=== PATIENT | male | born 1940 | race Caucasian/White ===

== ENCOUNTER → 2021-04-03 08:16 | Outpatient (CLI) | payer MEDICARE, SELFPAY ==
[2021-03-24 14:52] VITALS: BMI 27.2
[2021-04-03 12:20] LABS: Absolute Lymphocyte Count 2.63 X10^3/uL (0.83-4.51); Absolute Neutrophil Count 1.9 X10^3/uL (2.0-7.7); Basophil# 0.02 X10^3/uL; Basophil% 0.4 % (0-1); Eosinophil# 0.07 X10^3/uL; Eosinophils% 1.4 % (0-5); Hematocrit 45.1 % (40-54); Hemoglobin 14.9 g/dL (13.0-16.5); Lymphocyte # 2.63 X10^3/ul (0.83-4.51); Lymphocyte % 51.9 % (19-41); Mean Corpuscular Hgb 31.6 pg (27.0-32.0); Mean Corpuscular Volume 95.8 fL (80-94); Mean Platelet Vol. 10.1 fl (6.2-12.0); Monocyte# 0.41 X10^3/uL; Monocyte% 8.1 % (0-10); NRBC Flagged by Analyzer 0 % (0-5); Neutrophil # 1.93 X10^3/uL (2.7-7.7); Platelet Count 164 K/mm3 (150-450); RBC Distribution Width CV 13.8 % (11.6-14.6); Red Blood Count 4.71 M/mm3 (4.6-6.2); White Blood Count 5.1 K/mm3 (4.4-11.0)
[2021-04-03 12:41] LABS: Vitamin D,25 Hydroxy 74.2 ng/mL
[2021-04-03 13:00] LABS: AST(SGOT) 21 U/L (15-37); Alanine Aminotransfer ALT/SGPT 26 U/L (16-61); Albumin, Serum 3.7 g/dL (3.2-5.0); Alkaline Phosphatase 68 U/L (45-117); Anion Gap 6 (5-15); BUN 18 mg/dL (7-18); BUN/Creat Ratio 16.8 RATIO (10-20); Calcium,Total 8.8 mg/dL (8.5-10.1); Chloride 104 mmol/L (98-107); Cholesterol 177 mg/dL (200); Creatinine, Serum 1.07 mg/dL (0.70-1.30); EST Glomerular Filtration Rate 71 mL/min (>60); Est Glom Filt Rate - Afr Amer 86 mL/min (>60); Globulin 3.7 g/dL (2.2-4.2); Glucose 81 mg/dL (74-106); High Density Lipoprotein 41 mg/dL; PSA,Total - Annual Screen 3.59 ng/mL (0.00-4.00); Protein, Total 7.4 g/dL (6.4-8.2); Sodium Level 139 mmol/L (136-145); Triglycerides 72 mg/dL; Very Low Density Lipoprotein 14 mg/dL (5-40)
== END ==
PROVIDERS: PCP Internal Medicine; Visit Provider Internal Medicine
DX: I25.10 Atherosclerotic heart disease of native coronary artery without angina pectoris (principal); Z12.5 Encounter for screening for malignant neoplasm of prostate; E55.9 Vitamin D deficiency, unspecified; Z95.820 Peripheral vascular angioplasty status with implants and grafts
CPT/HCPCS: 36415; 80053; 80061; 82306; 84153; 85025; G0103

== ENCOUNTER → 2021-05-21 06:49 | Outpatient (CLI) | payer MEDICARE, SELFPAY ==
[2021-05-06 08:52] VITALS: BMI 27.4
[2021-05-18 09:32] VITALS: BMI 27.4
--- NOTE | 2021-05-21 06:52 | ECHOD_ITS ---
Reason For Study: CAD/ASHD Procedure This was a 2D Doppler, Color Flow transthoracic echocardiogram. Exam performed in department. Left Ventricle Normal LV size. Left ventricular systolic function is normal. The estimated ejection fraction is 60 %. Stage 1 diastolic dysfunction. No regional wall motion abnormalities noted. Right Ventricle Normal RV size. Normal systolic function. Atria Normal left atrium. Normal right atrium. Mitral Valve Normal mitral valve. Tricuspid Valve Normal tricuspid valve. Aortic Valve Trisinus/trileaflet aortic valve. Moderate focal aortic valve calcification. Pulmonic Valve Normal pulmonic valve. Trivial pulmonic valve insufficiency. Great Vessels Normal aortic root. The pulmonary artery is normal size. Normal inferior vena cava. Pericardium/Pleural No pericardial effusion. MMode/2D Measurements & Calculations LVIDd: 4.9 cm IVSd: 0.86 cm Ao root diam: 3.4 cm LVIDs: 3.0 cm LVPWd: 0.88 cm RVDd: 3.8 cm FS: 37.6 % LAV(MOD-bp): 51.4 ml LA A4 area: 19.3 cm2 LA dimension(2D): 3.4 cm LAV(MOD-bp) Indexed: 27.5 ml/m2 LAV(MOD-sp2): 50.4 ml LAV(MOD-sp4): 50.4 ml RA A4 area: 19.0 cm2 Doppler Measurements & Calculations MV E max jesús: 38.2 cm/sec Lat Peak E' Jesús: 7.0 cm/sec Med Peak E' Jesús: 7.9 cm/sec MV A max jesús: 43.9 cm/sec E/E' lat: 5.5 E/E' med: 4.9 MV E/A: 0.87 Ao V2 max: 116.0 cm/sec LV V1 max: 77.5 cm/sec PA V2 max: 78.8 cm/sec Ao max P.4 mmHg LV V1 max P.4 mmHg ECHO/Echo Complete Interpretation Summary Normal LV size. Left ventricular systolic function is normal. The estimated ejection fraction is 60 %. Moderate focal aortic valve calcification. Stage 1 diastolic dysfunction. Ordering Physician: Wayne Okeefe Referring Physician: Ondina Dumont Performed By: Ann Ramirez, SKYLAR, RVT
--- NOTE | 2021-05-21 18:37 | STRESSREP_ITS ---
Stress Test Report Exercise myocardial perfusion stress test. 80-year-old man with a history of coronary artery disease. Stress protocol: Resting EKG demonstrates sinus bradycardia with a rate of 50 bpm normal intervals are noted resting blood pressure is 132/80 mmHg. The patient exercised according to regular Tesfaye protocol for total duration of 6 minutes. The maximum heart rate attained was 130 bpm which was 91% of max impact her heart rate the maximum workload was 7 metabolic equivalents. At rest there were no ST or T wave changes noted to suggest ischemia. At peak exercise there was less than [address] depression noted in the inferolateral leads. The above did not meet the criteria for ischemia. No clinical angina was noted the test was terminated due to shortness of breath. The peak blood pressure was 142/84 mmHg. Myocardial perfusion protocol. 11.3 mCi of technetium 99m sestamibi was injected at rest. The patient exercise d according to regular Tesfaye protocol for total duration of 6 minutes. At peak exercise 33.5 mCi of technetium 99m sestamibi was injected stress images were obtained stress and rest images were reconstructed and compared in the short axis vertical long and horizontal long axis. Gated images were also obtained to Perfusion SPECT analysis: Review of the stress images demonstrate normal uptake of tracer noted in all areas of the myocardium. The resting images similarly demonstrate normal uptake of tracer noted in all areas of the myocardium. No areas of reversibility are noted suggest ischemia and no previous infarct is noted. Gated SPECT analysis: The gated ejection fraction is 67%. Conclusion: Normal exercise myocardial perfusion stress test at a moderate workload. Preserved ejection fraction.
== END ==
PROVIDERS: PCP Internal Medicine; Referring Provider Internal Medicine Cardiovascular Disease; Visit Provider Internal Medicine Cardiovascular Disease
DX: I25.10 Atherosclerotic heart disease of native coronary artery without angina pectoris (principal); Z95.5 Presence of coronary angioplasty implant and graft
CPT/HCPCS: 78452; 93017; 93306; A9500; A4216

== ENCOUNTER → 2022-04-21 | Outpatient (CLI) | payer MEDICARE, SELFPAY ==
[2022-04-21 12:07] LABS: Absolute Lymphocyte Count 1.88 X10^3/uL (0.83-4.51); Basophil# 0.03 X10^3/uL; Basophil% 0.7 % (0-1); Eosinophil# 0.08 X10^3/uL; Eosinophils% 1.8 % (0-5); Hematocrit 45.1 % (40-54); Hemoglobin 15.3 g/dL (13.0-16.5); Lymphocyte # 1.88 X10^3/ul (0.83-4.51); Lymphocyte % 42.9 % (19-41); Mean Corp Hgb Conc 33.9 g/dL (32-36); Mean Corpuscular Hgb 31.9 pg (27.0-32.0); Mean Corpuscular Volume 94.2 fL (80-94); Mean Platelet Vol. 10.1 fl (6.2-12.0); Monocyte% 9.1 % (0-10); NRBC Flagged by Analyzer 0 % (0-5); Neutrophil # 1.98 X10^3/uL (2.7-7.7); Neutrophil % 45.3 % (47-70); Platelet Count 177 K/mm3 (150-450); RBC Distribution Width CV 14.2 % (11.6-14.6); RBC Distribution Width SD 49.1 fl (35.1-43.9); Red Blood Count 4.79 M/mm3 (4.6-6.2); White Blood Count 4.4 K/mm3 (4.4-11.0)
[2022-04-21 12:40] LABS: ALB/GLOB Ratio 0.9 RATIO (0.9-2.4); AST(SGOT) 21 U/L (15-37); Alanine Aminotransfer ALT/SGPT 25 U/L (16-61); Albumin, Serum 3.5 g/dL (3.2-5.0); Alkaline Phosphatase 66 U/L (45-117); Anion Gap 4 (5-15); BUN 14 mg/dL (7-18); BUN/Creat Ratio 12.6 RATIO (10-20); Calcium,Total 8.9 mg/dL (8.5-10.1); Chloride 106 mmol/L (98-107); Cholesterol 186 mg/dL (200); Creatinine, Serum 1.11 mg/dL (0.70-1.30); EST Glomerular Filtration Rate 68 mL/min (>60); Est Glom Filt Rate - Afr Amer 82 mL/min (>60); Globulin 3.8 g/dL (2.2-4.2); Glucose 94 mg/dL (74-106); High Density Lipoprotein 35 mg/dL; PSA,Total - Annual Screen 3.48 ng/mL (0.00-4.00); Potassium 4.1 mmol/L (3.5-5.1); Protein, Total 7.3 g/dL (6.4-8.2); Sodium Level 137 mmol/L (136-145); Triglycerides 124 mg/dL; Very Low Density Lipoprotein 25 mg/dL (5-40)
== END | disposition home or self-care (01) ==
LOC: BIMLAB 09:00
PROVIDERS: PCP Internal Medicine; Visit Provider Internal Medicine
DX: R39.9 Unspecified symptoms and signs involving the genitourinary system (principal); I25.10 Atherosclerotic heart disease of native coronary artery without angina pectoris; Z95.5 Presence of coronary angioplasty implant and graft; Z12.5 Encounter for screening for malignant neoplasm of prostate
CPT/HCPCS: 36415; 80053; 80061; 84153; 85025; G0103

== ENCOUNTER 2022-09-22 10:25 | Outpatient (CLI) | payer MEDICARE, SELFPAY ==
[2022-09-22 13:04] LABS: Vitamin D,25 Hydroxy 67.1 ng/mL
[2022-09-22 13:07] LABS: Cholesterol 210 mg/dL (200); High Density Lipoprotein 41 mg/dL; Triglycerides 86 mg/dL; Very Low Density Lipoprotein 17 mg/dL (5-40)
[2022-09-22 13:33] LABS: Hemoglobin A1c 5.1 % (3.8-5.6)
== END 2022-09-22 23:59 | disposition home or self-care (01) ==
LOC: BIMLAB 10:26
PROVIDERS: PCP Internal Medicine; Referring Provider Internal Medicine; Visit Provider Internal Medicine
DX: R73.9 Hyperglycemia, unspecified (principal); I25.10 Atherosclerotic heart disease of native coronary artery without angina pectoris; Z95.5 Presence of coronary angioplasty implant and graft; E55.9 Vitamin D deficiency, unspecified
CPT/HCPCS: 36415; 80061; 82306; 83036

== ENCOUNTER → 2023-07-05 | Outpatient (CLI) | payer MEDICARE, SELFPAY ==
[2023-07-05 16:57] LABS: Absolute Lymphocyte Count 2.25 X10^3/uL (0.83-4.51); Absolute Neutrophil Count 2.2 X10^3/uL (2.0-7.7); Basophil# 0.04 X10^3/uL; Basophil% 0.8 % (0-1); Eosinophil# 0.07 X10^3/uL; Eosinophils% 1.4 % (0-5); Hematocrit 44.2 % (40-54); Hemoglobin 14.6 g/dL (13.0-16.5); Lymphocyte # 2.25 X10^3/ul (0.83-4.51); Lymphocyte % 44.6 % (19-41); Mean Corpuscular Hgb 32.1 pg (27.0-32.0); Mean Corpuscular Volume 97.1 fL (80-94); Mean Platelet Vol. 9.6 fl (6.2-12.0); Monocyte# 0.47 X10^3/uL; Monocyte% 9.3 % (0-10); NRBC Flagged by Analyzer 0 % (0-5); Neutrophil # 2.21 X10^3/uL (2.7-7.7); Neutrophil % 43.7 % (47-70); Platelet Count 178 K/mm3 (150-450); RBC Distribution Width CV 14.7 % (11.6-14.6); RBC Distribution Width SD 52.4 fl (35.1-43.9); Red Blood Count 4.55 M/mm3 (4.6-6.2); White Blood Count 5.1 K/mm3 (4.4-11.0)
[2023-07-05 17:30] LABS: ALB/GLOB Ratio 0.8 RATIO (0.9-2.4); AST(SGOT) 24 U/L (15-37); Alanine Aminotransfer ALT/SGPT 43 U/L (16-61); Albumin, Serum 3.4 g/dL (3.2-5.0); Alkaline Phosphatase 80 U/L (45-117); Anion Gap 2 (5-15); BUN 19 mg/dL (7-18); Calcium,Total 8.7 mg/dL (8.5-10.1); Chloride 107 mmol/L (98-107); Cholesterol 205 mg/dL (200); Creatinine, Serum 1.12 mg/dL (0.70-1.30); EST Glomerular Filtration Rate 67 mL/min (>60); Est Glom Filt Rate - Afr Amer 81 mL/min (>60); Glucose 82 mg/dL (74-106); High Density Lipoprotein 41 mg/dL; PSA,Total - Annual Screen 3.17 ng/mL (0.00-4.00); Potassium 4.5 mmol/L (3.5-5.1); Protein, Total 7.4 g/dL (6.4-8.2); Sodium Level 140 mmol/L (136-145); Triglycerides 143 mg/dL; Very Low Density Lipoprotein 29 mg/dL (5-40)
[2023-07-05 19:11] LABS: Vitamin B12 738 pg/mL (211-911); Vitamin D,25 Hydroxy 50.6 ng/mL
== END | disposition home or self-care (01) ==
LOC: BIMLAB 15:17
PROVIDERS: PCP Internal Medicine; Visit Provider Internal Medicine
DX: I25.10 Atherosclerotic heart disease of native coronary artery without angina pectoris (principal); Z95.5 Presence of coronary angioplasty implant and graft; R39.9 Unspecified symptoms and signs involving the genitourinary system; E55.9 Vitamin D deficiency, unspecified; Z13.220 Encounter for screening for lipoid disorders; Z12.5 Encounter for screening for malignant neoplasm of prostate; E53.8 Deficiency of other specified B group vitamins
CPT/HCPCS: 36415; 80053; 80061; 82306; 82607; 84153; 84443; 85025; G0103

== ENCOUNTER → 2024-01-16 | Outpatient (CLI) | payer MEDICARE, SELFPAY ==
[2024-01-16 12:05] LABS: Absolute Lymphocyte Count 2.26 X10^3/uL (0.83-4.51); Absolute Neutrophil Count 2.5 X10^3/uL (2.0-7.7); Basophil# 0.03 X10^3/uL; Basophil% 0.6 % (0-1); Eosinophil# 0.12 X10^3/uL; Eosinophils% 2.3 % (0-5); Hemoglobin 15.1 g/dL (13.0-16.5); Lymphocyte # 2.26 X10^3/ul (0.83-4.51); Lymphocyte % 42.7 % (19-41); Mean Corp Hgb Conc 32.8 g/dL (32-36); Mean Corpuscular Hgb 31.5 pg (27.0-32.0); Mean Platelet Vol. 9.7 fl (6.2-12.0); Monocyte# 0.42 X10^3/uL; Monocyte% 7.9 % (0-10); NRBC Flagged by Analyzer 0 % (0-5); Neutrophil # 2.45 X10^3/uL (2.7-7.7); Neutrophil % 46.3 % (47-70); Platelet Count 200 K/mm3 (150-450); RBC Distribution Width CV 14.6 % (11.6-14.6); RBC Distribution Width SD 51.3 fl (35.1-43.9); Red Blood Count 4.79 M/mm3 (4.6-6.2); White Blood Count 5.3 K/mm3 (4.4-11.0)
[2024-01-16 12:50] LABS: Vitamin D,25 Hydroxy 57.3 ng/mL
[2024-01-16 13:26] LABS: ALB/GLOB Ratio 0.9 RATIO (0.9-2.4); AST(SGOT) 30 U/L (15-37); Alanine Aminotransfer ALT/SGPT 32 U/L (16-61); Albumin, Serum 3.5 g/dL (3.2-5.0); Alkaline Phosphatase 72 U/L (45-117); Anion Gap 3 (5-15); BUN 22 mg/dL (7-18); BUN/Creat Ratio 20.6 RATIO (10-20); Calcium,Total 8.9 mg/dL (8.5-10.1); Chloride 108 mmol/L (98-107); Cholesterol 205 mg/dL (200); Creatinine, Serum 1.07 mg/dL (0.70-1.30); EST Glomerular Filtration Rate 71 mL/min (>60); Est Glom Filt Rate - Afr Amer 85 mL/min (>60); Glucose 89 mg/dL (74-106); High Density Lipoprotein 43 mg/dL; Potassium 4.5 mmol/L (3.5-5.1); Protein, Total 7.5 g/dL (6.4-8.2); Sodium Level 138 mmol/L (136-145); Triglycerides 87 mg/dL; Very Low Density Lipoprotein 17 mg/dL (5-40)
== END | disposition home or self-care (01) ==
LOC: BIMLAB 08:30
PROVIDERS: PCP Internal Medicine; Referring Provider Internal Medicine; Visit Provider Internal Medicine
DX: I25.10 Atherosclerotic heart disease of native coronary artery without angina pectoris (principal); Z95.5 Presence of coronary angioplasty implant and graft; Z13.220 Encounter for screening for lipoid disorders; E55.9 Vitamin D deficiency, unspecified
CPT/HCPCS: 36415; 80053; 80061; 82306; 85025

== ENCOUNTER → 2024-07-09 | Outpatient (CLI) | payer MEDICARE, SELFPAY ==
[2024-07-09 12:05] LABS: Absolute Lymphocyte Count 2.79 X10^3/uL (0.83-4.51); Absolute Neutrophil Count 1.9 X10^3/uL (2.0-7.7); Basophil# 0.01 X10^3/uL; Basophil% 0.2 % (0-1); Eosinophil# 0.09 X10^3/uL; Eosinophils% 1.7 % (0-5); Hematocrit 46.9 % (40-54); Hemoglobin 15.5 g/dL (13.0-16.5); Lymphocyte # 2.79 X10^3/ul (0.83-4.51); Lymphocyte % 54.1 % (19-41); Mean Corpuscular Hgb 31.8 pg (27.0-32.0); Mean Corpuscular Volume 96.3 fL (80-94); Mean Platelet Vol. 10.3 fl (6.2-12.0); Monocyte# 0.39 X10^3/uL; Monocyte% 7.6 % (0-10); NRBC Flagged by Analyzer 0 % (0-5); Neutrophil # 1.87 X10^3/uL (2.7-7.7); Neutrophil % 36.2 % (47-70); Platelet Count 178 K/mm3 (150-450); RBC Distribution Width CV 14.4 % (11.6-14.6); RBC Distribution Width SD 50.9 fl (35.1-43.9); Red Blood Count 4.87 M/mm3 (4.6-6.2); White Blood Count 5.2 K/mm3 (4.4-11.0)
[2024-07-09 12:16] LABS: Vitamin B12 997 pg/mL (211-911); Vitamin D,25 Hydroxy 59.1 ng/mL
[2024-07-09 12:35] LABS: ALB/GLOB Ratio 0.9 RATIO (0.9-2.4); AST(SGOT) 18 U/L (15-37); Alanine Aminotransfer ALT/SGPT 22 U/L (16-61); Albumin, Serum 3.5 g/dL (3.2-5.0); Alkaline Phosphatase 66 U/L (45-117); Anion Gap 6 (5-15); BUN 16 mg/dL (7-18); BUN/Creat Ratio 15.7 RATIO (10-20); Calcium,Total 9.2 mg/dL (8.5-10.1); Chloride 105 mmol/L (98-107); Cholesterol 193 mg/dL (200); Creatinine, Serum 1.02 mg/dL (0.70-1.30); EST Glomerular Filtration Rate 74 mL/min (>60); Est Glom Filt Rate - Afr Amer 90 mL/min (>60); Glucose 92 mg/dL (74-106); High Density Lipoprotein 37 mg/dL; PSA,Total - Annual Screen 2.74 ng/mL (0.00-4.00); Potassium 4.7 mmol/L (3.5-5.1); Protein, Total 7.5 g/dL (6.4-8.2); Sodium Level 138 mmol/L (136-145); Triglycerides 115 mg/dL; Very Low Density Lipoprotein 23 mg/dL (5-40)
== END | disposition home or self-care (01) ==
LOC: BIMLAB 08:26
PROVIDERS: PCP Internal Medicine; Referring Provider Internal Medicine; Visit Provider Internal Medicine
DX: I25.10 Atherosclerotic heart disease of native coronary artery without angina pectoris (principal); Z95.5 Presence of coronary angioplasty implant and graft; R39.9 Unspecified symptoms and signs involving the genitourinary system; Z13.220 Encounter for screening for lipoid disorders; Z12.5 Encounter for screening for malignant neoplasm of prostate; E55.9 Vitamin D deficiency, unspecified; E53.8 Deficiency of other specified B group vitamins
CPT/HCPCS: 36415; 80053; 80061; 82306; 82607; 84153; 84443; 85025; G0103

== ENCOUNTER 2025-07-30 09:19 | Outpatient (CLI) | payer MEDICARE, SELFPAY ==
--- OUTSIDE RECORDS SUMMARY | 2025-01-14 09:45 | XMS RPT_ITS ---
Author Name Auto Generated Organization [facility] Care Team Providers Care Online Services Manager Name Role Phone CARLOS CUTLER Referring Unavailable BURT WILLIAM Primary Care Unavailable CARLOS CUTLER Referring Unavailable BURT WILLIAM Primary Care Unavailable CARLOS CUTLER Referring Unavailable BURT WILLIAM Primary Care Unavailable CARLOS CUTLER Referring Unavailable BURT WILLIAM Primary Care Unavailable CARLOS CUTLER Attending Unavailable CARLOS CUTLER Referring Unavailable BURT WILLIAM Primary Care Unavailable PROBLEMS DATE TYPE CONDITION / CODE ATTENDING STATUS [facility] 11/26/2024 Active Other chest pain / R07.89(ICD-10) NA Active [facility] 12/28/2021 Active Other hyperlipid emia / E78.49(ICD-10) NA Active [facility] 12/28/2021 Active Coronary artery disease involving northway coronary artery of northway heart without angina pectoris / I25.10(ICD-10) NA Active [facility] PROCEDURES No Procedure Records Found RESULTS PROGRESS Observed: 01/14/2025 8:30 AM Status: COMPLETED Source: [facility] HNO ID: [id number] Author: MARLON ANTONIO RT(R) Service: Nuclear Medicine Author Type: Technologist Type: Progress Notes Filed: 01/14/2025 14:35 Note Text: RADIOLOGY SERVICE PROGRESS NOTE SERVICE DATE: 01/14/2025 SERVICE TIME: 08:48 AM PATIENT IDENTITY VERIFICATION COMPLETED USING TWO (2) STANDARD IDENTIFIERS: Name and Date of confirmed by patient verbally FALL SCREENING: Has the patient had 2 falls in the last year or 1 fall with injury or currently using an Ambulatory Assistive Device (Walker, Cane, Wheelchair, Crutches, etc.)? No PATIENT GENDER DATA: .male ALLERGIES: Reviewed and unchanged MEDICATIONS REVIEWED: No PATIENT RELEVANT IMPLANT DATA REVIEWED: Not Applicable PATIENT PRESENTS WITH AN IMPLANTABLE OR ATTACHED WAFER FABRICATOR: No CREATININE: Creatinine Date Value Ref Range Status 09/26/2024 1.18 0.73 - 1.22 mg/dL Final Estimated Glomerular Filtration Rate Date Value Ref Range Status 09/26/2024 62 >=60 mL/min/1.73m? Final Comment: Estimated Glomerular Filtration Rate (eGFR) is calculated using the 2020 CKD-EPI creatinine equation. This equation utilizes serum creatinine, sex, and age as parameters. The creatinine assay has traceable calibration to isotope dilution-mass spectrometry. Refer to KDIGO guidelines for clinical interpretation. In patients with unstable renal function, e.g. those with acute kidney injury, the eGFR may not accurately reflect actual GFR. P.O.C.T. RESULTS: N/A January 14, [address] PERFORMED: No IV SITE: Ambulatory: A peripheral IV was started in the Right antecubital site with a Angio cath: 22 gauge. POST EXAM PIV STATUS: Discontinued PROCEDURE TYPE: NE Stress: 12.9 mCi [id number] was administered IV for Rest Imaging at 09:00 by Marlon Antonio. 31.3 mCi [id number] was administered IV for Stress Imaging at 10:56 by Marlon Antonio. PATIENT DISCHARGED TO: Ambulatory patient, left NE department area. Is this a therapy: No A Diagnostic radioactive procedure has taken place, with no further precautions necessary other than routine body substance precautions. More information regarding radiation safety can be found using this link: [email or web address] SIGNATURE: RT Nile(R) PATIENT NAME: Ren Jacobo DATE: January 14, 2025 TIME: 11:48 AM PAGER/CONTACT #: MARVIN CARDIAC PERF STRESS/EXERCISE Observed: 01/14/2025 7:34 AM Status: F Source: [facility] * * *Final Report* * * DATE OF EXAM: Jan 14 2025 7:34AM WON 0004 - MARVIN CARDIAC PERF STRESS/EXERCISE / PROCEDURE REASON: multiple diagnoses * * * * Physician Interpretation * * * * Stress Senior Sql Server Database Developer Report: [facility] Date of service: 01/14/2025 7:34:55 AM Supervising physician: Todd Austin MD PATIENT: Name: REN JACOBO Age: 84 years Gender: M The supervising physician was in the department and immediately available. * * * Final * * * PATIENT: Name: REN JACOBO Age: 84 years Gender: M CONCLUSIONS: 1. SPECT Perfusion Study: Normal. 2. There is no scintigraphic evidence for inducible ischemia. 3. No evidence of scarred myocardium. 4. Left ventricle is normal in size. The left ventricle systolic function is hyperdynamic. 5. This is a low risk scan. Gated Stress FBP LVEF % 74 Prior Study Comparison No prior nuclear cardiology exam available for comparison. Nuclear Med Report:1-Day Gated SPECT Myocardial Perfusion with Exercise Stress: Myocardial perfusion imaging was performed at rest 30 to 60 minutes following the IV injection of the radiotracer. One minute prior to peak exercise, the patient was injected IV with the radiotracer. Gated post stress tomographic imaging was performed 10 to 20 minutes later. See administered radiotracer and doses below. [facility] Date of service: 01/14/2025 7:34:55 AM Ordering Physician: CARLOS CUTLER. Requesting Physician: CARLOS CUTLER Indication: Assessment for known CAD and CP - ECG interpretable AND able to exercise with interm/high pre-test probability Interpreting physician: Angel Guillen MD Height: 167.64 cm BSA: 1.98 m? Weight: 84.37 kg BMI: 30.0 kg/m? Imaging Protocol Limitation Reason Diaphragmatic attenuation and Patient motion. Exam Type: Rest Stress Radiopharm: Tc-99m Tetrofosmin Tc-99m Tetrofosmin Dosage(mCi): 12.9 31.3 Stress Agent: Treadmill Image Quality The overall study imaging quality was deemed to be fair. The following technical issues were noted: Diaphragmatic attenuation and Patient motion. FINDINGS: Left Ventricle Wall Motion: Stress IR:3D - All segments are normal. Rest IR:3D - Gated Stress FBP - Reversibility - Stress IR:3D Stress IR:3D Gated Stress FBP LVEF: 74 % ED Volume: 92 ml ES Volume: 24 ml TID: 0.87 Perfusion Findings Stress IR:3D - Summed Score=0 All segments demonstrate normal perfusion. Rest IR:3D - Summed Score=0 All segments demonstrate normal perfusion. Stress IR:3D Rest IR:3D Summed Score=0 Summed Score=0 LEFT VENTRICLE The left ventricle is normal in size. Left ventricular systolic function is hyperdynamic. Stress Test Findings: There is no scintigraphic evidence for inducible ischemia. There is no evidence of scarring. The left ventricular cavity size is decreased with stress. * * * Final * * * Stress ECG Report: [facility] Date of service: 01/14/2025 7:34:55 AM Ordering physician: CARLOS CUTLER clinical appeals specialist: Sara Saunders RN Interpreting physician: Todd Austin MD Patient name: REN JACOBO Age: 84 years Gender: M Height: 167.64 cm BSA: 1.98 m? Weight: 84.37 kg BMI: 30.0 kg/m? Indication: Atherosclerotic heart disease NOS and Encounter for screening for cardiovascular disorders Stress ECG Conclusion: Conclusion: Normal with exception due to borderline ST changes, abnormal Long treadmill score and exercise diastolic hypertension Prior exam comparison: No prior CC exam Stress ECG Summary: The patient's resting heart rate was 57 bpm and blood pressure was 134/62 mmHg. The patient exercised according to the Shaq 10% protocol. The estimated end-exercise MET level achieved using the FRIEND equation * * * was 6.1, which is within the 25th to 50th percentile for age and sex. The estimated end-exercise MET level achieved using the previous ACSM equation was 7.0. The test was terminated due to general fatigue and the total exercise time was 6 minutes and 0 seconds. No symptoms provoked during stress. The maximum heart rate was 130 bpm, which is 94% of the predicted heart rate for age. This is an adequate heart rate response. Peak blood pressure was 160/80 mmHg. The double product achieved was [id number]. Previous cardiovascular interventions: PCI (2018) [place] History: + + + Date Description + + + 10/30/2019 + + + Medications: Last Used METOPROLOL 2 Days NITROGLYCERIN PRN Resting ECG: Normal Sinus Rhythm and Rare PACs (<3/Min) Symptoms at rest: No symptoms Exercise Protocol: Swatara 10% Stress Exercise Table: +-----+ +--------+ +---+---+---+----+---+----+ Stage Speed (MPH) Grade(%) Time (min) HR SYS SARA RPE SOB METS +-----+ +--------+ +---+---+---+----+---+----+ 1 1.7 10.0 2.0 113 148 64 11.0 0.0 4.2 +-----+ +--------+ +---+---+---+----+---+----+ 2 2.1 11.0 4.0 122 154 78 13.0 2.0 5.1 +-----+ +--------+ +---+---+---+----+---+----+ +-----+ +---------+ +---+---+---+----+---+----+ Speed (MPH) Grade (%) Time (min) HR SYS SARA RPE SOB METS +-----+ +---------+ +---+---+---+----+---+----+ Final 2.5 12.0 6.00 130 160 80 15.0 4.0 6.1 +-----+ +---------+ +---+---+---+----+---+----+ +------+ + Stage ST: Lead, Blanco, MM +------+ + 2 +--+ +---+ V5 Horizontal 0.5 +--+ +---+ +------+ + +-----+ + + ST: Lead, Blanco, MM Arrhythmias +-----+ + + Final +---+ +---+ Rare PVC (<3/min) and Rare PAC (<3/min) LAT Horizontal 1.0 +---+ +---+ II Horizontal 1.0 +---+ +---+ V3 Upsloping 0.5 +---+ +---+ V4 Upsloping 0.5 +---+ +---+ +-----+ + + Recovery Table: +------+ +--------+---+---+---+----+ Stage Speed (MPH) Grade(%) HR SYS SARA METS +------+ +--------+---+---+---+----+ 1 1.5 0.0 111 2.1 +------+ +--------+---+---+---+----+ 2 1.5 0.0 106 164 62 2.1 +------+ +--------+---+---+---+----+ 3 88 +------+ +--------+---+---+---+----+ 4 83 140 62 +------+ +--------+---+---+---+----+ 5 83 +------+ +--------+---+---+---+----+ +-----+ + + Stage ST: Lead, Blanco, MM Arrhythmias +-----+ + + 1 +----+++ RSVD +----+++ RSVD +----+++ RSVD +----+++ RSVD +----+++ +-----+ + + 3 Rare PVC (<3/min) +-----+ + + Stress Observations: Resting HR: 57 bpm Peak HR: 130 bpm (94% MPHR) Resting BP: 134 / 62 mmHg Peak BP: 160 / 80 mmHg Total exercise time: 6 minutes 0 seconds METS achieved: 6.1 Chronotropic response index (CRI): 0.90 Heart rate recovery (HRR): 19 bpm Rate Pressure Product (RPP): 06976 Stress Exercise Observations: Reason for test termination: general fatigue, Symptoms during test: No symptoms provoked during stress, Heart rate response: Adequate heart rate response, Abnormal CRI (<= 0.8 Not on B Ariane) and Normal HRR (>12 or >[address]/EC), Blood pressure response: Exercise diastolic hypertension, ST segment and T wave changes: Borderline ST depression (<1 mm or any upslope) during stress and Note: Rapid resolution of ST changes w/ rest (<1 minute), Long Treadmill Score: Abnormal Long Treadmill Score (<5 but >= -10) and Arrhythmias: Unifocal PVCs and PACs Metabolic Exercise Data Variable: Observed value [Expected Range] HGI: 1.7 [>1.06 bpm/mmHg] * * * IMPORTANT NOTE REGARDING ESTIMATED MET VALUES: Effective 08/17/2020, the reference equation for determining estimated MET values for [facility] stress tests changed. Comparison of test results before and after that date may show a change in estimated MET values for peak/max exercise despite a test duration that is similar in length. The validity of the new FRIEND equation for exercise METS is endorsed by the [place] [employer]. Carmen P, Wally LA, Ermelinda R, Turner J, Nirmala J. New Generalized Equation for Predicting Maximal Oxygen Uptake (from the Fitness Registry and the Importance of Exercise National Database). The [place] Journal of Cardiology. 2017;120(4):688-692). * * * Final * * * RP Wet Trimmer: LUIZ Transcribe Date/Time: Jan 14 2025 7:34A Dictated by : ANGEL GUILLEN MD This examination was interpreted and the report reviewed and electronically signed by: ANGEL GUILLEN MD on Jan 14 2025 4:44PM EST [id number] Observed: 01/09/2025 12:00 AM Status: COMPLETED Source: [facility] Telephone (CARDWS) REN JACOBO ([id number]) 1940 M Date Time Provider Department 01/09/25 NURSE CARD WSTR CARDWS During your visit today, we recorded the following information about you: Sara Saunders, ONESIMO 01/09/2025 10:49 AM Signed You are scheduled for a stress test on 01/14/25 at 8:30am. This stress test will appear as 3 appointments on your schedule. You may get multiple reminder calls, but please arrive at the earliest scheduled appointment. Please follow below instructions: *NOTHING BY MOUTH 4 HOURS prior to this test. (you may have sips of water) *NO CAFFEINE FOR 24 HOURS PRIOR TO TESTING (including TEA even decaf, COFFEE- even decaf, CHOCOLATE, CECI- even decaf) *Do NOT take MEDICATIONS CONTAINING CAFFEINE/XANTHINE for 24 HOURS prior to testing: Theophylline, Trental, Excedrin, Anacin, Goody Powders, No Doz, Vivarin, Midol, Diurex, Fiorinal, Fioricet, Esgic (butalbital) *Do NOT take Calcium Channel Blockers 24 HOURS prior to test. *Do NOT take Beta blockers 24 HOURS prior to test UNLESS your doctor tells you otherwise. *Do NOT use the following medications 48 HOURS prior to this test: Viagra(Sildenafil citrate), Cialis(Tadalafil), Vardenafil (Levitra, Stanyx), Avanfil (Stendra). *Do not take any of these meds prior to test unless provider directs you otherwise; Nitroglycerine (ex:Deponit, Nitrostat) Isosorbide (ex:Isordil, Sorbitrate,Imdur,Ismo). Medications on your list you should hold for 24 HOURS: metoprolol AND nitroglycerin Patient called and stress test instructions reviewed. Patient denies any questions at this time. Sara Saunders RN *All other medications may be taken as you normally would. *Guidelines for Diabetics: If you take insulin to control your blood sugar, ask you physician what amount you should take the day of the test. If you take pills to control blood sugar, on the day of the test, do NOT take them until AFTER the test. *FAILURE TO FOLLOW THESE INSTRUCTIONS WILL RESULT IN HAVING TO RESCHEDULE THE TEST. *Please wear comfortable clothes with a short-sleeved shirt and comfortable walking shoes. You will be on the treadmill during this test. *If you use an inhaler, bring it along with you just in case *THIS TEST MAY TAKE UP TO 3 HOURS TO COMPLETE. Please check in on the first floor at Radiology: [address]; [place] [address] * If you need to cancel or reschedule this test or have any questions regarding this test, please call [phone]. Allergies As of Date: 01/09/2025 (No Known Allergies) Date Reviewed: 11/26/2024 Reviewed by: Cralos Cutler MD - Fully Assessed Reason for Visit: Stress Test Instructions [Other] Prescriptions as of 01/09/2025 - nitroglycerin sublingual (NITROQUICK) 0.3 mg SL tablet Dissolve 1 tablet under the tongue every 5 minutes as needed for chest pain. - omega 4-jgr-sch-fish oil 1,000 mg (250 mg-750 mg)/5 mL liqd Take by mouth. - rosuvastatin (CRESTOR) 10 mg tablet Take 1 tablet by mouth daily at bedtime. - docosahexaenoic acid/epa (FISH OIL ORAL) Take by mouth once daily. - cholecalciferol (VITAMIN D3) 5,000 unit tab Take 5,000 Units by mouth once daily. - Vitamin E, dl, acetate, (VITAMIN E) 400 unit capsule Take 400 Units by mouth once daily. - metoprolol tartrate, short acting, (LOPRESSOR) 25 mg tablet Take by mouth once daily. - soybean, fermented (NATTOKINASE ORAL) Take by mouth once daily. - MULTIVITAMIN ORAL Take by mouth once daily. Problem List As Of Date 01/09/2025 Noted Resolved Coronary artery disease involving northway mercedes*12/28/2021 Other hyperlipidemia [E78.49] 12/28/2021 Other chest pain [R07.89] 11/26/2024 Encounter Status:Closed by SARA SAUNDERS on 01/09/25 CNOV Observed: 11/26/2024 10:00 AM Status: COMPLETED Source: [facility] Office Visit (CARDWS) REN [id number]) 1940 M Date Time Provider Department 11/26/24 10:00 AM CARLOS CUTLER During your visit today, we recorded the following information about you: Pulse Respiration Blood pressure Weight 67/minute 12/minute 106/56 84.4 kg Height 1.676 m Carlos Cutler MD 11/26/2024 10:35 AM Signed [facility] Cardiology ([facility]) [address] [facility] [id number] OUTPATIENT VISIT DATE 11/26/2024 PRIMARY CARE PHYSICIAN: HISTORY OF PRESENT ILLNESS: Mr. Jacobo is a 84 year old gentleman with a history of coronary artery disease prior inferior wall myocardial infarction October 30, 2019 and dyslipidemia who is here for routine follow-up. Patient reports a few episodes of left arm pain. The pain does not happen with exertion and is usually spontaneous in onset. There is no associated nausea, vomiting, or shortness of breath. He has not had diaphoresis. He did have 1 prolonged episode of left arm pain and took a sublingual nitroglycerin with relief in about 3 to 4 minutes. PAST MEDICAL HISTORY Diagnosis Date History of heart attack PAST SURGICAL HISTORY Procedure Laterality Date PRQ CARDIAC STENT W/ANGIO 1 VSL SOCIAL HISTORY Social History Tobacco Use Smoking status: Never Smokeless tobacco: Never Substance Use Topics Alcohol use: Never Drug use: Never No family history on file. ALLERGIES: ALLERGIES No Known Allergies MEDICATIONS: docosahexaenoic acid/epa (FISH OIL ORAL) Take by mouth once daily. cholecalciferol (VITAMIN D3) 5,000 unit tab Take 5,000 Units by mouth once daily. Vitamin E, dl, acetate, (VITAMIN E) 400 unit capsule Take 400 Units by mouth once daily. metoprolol tartrate, short acting, (LOPRESSOR) 25 mg tablet Take by mouth once daily. soybean, fermented (NATTOKINASE ORAL) Take by mouth once daily. MULTIVITAMIN ORAL Take by mouth once daily. atorvastatin (LIPITOR) 20 mg tablet Take 1 tablet by mouth once daily. (Patient not taking: Reported on 03/19/2024) REVIEW OF SYSTEMS: Review of Systems Constitutional: Negative for chills, fever, malaise/fatigue and weight loss. HENT: Negative for hearing loss and sore throat. Eyes: Negative for blurred vision and double vision. Respiratory: Negative. Cardiovascular: Negative. Gastrointestinal: Negative. Genitourinary: Negative for dysuria, frequency, hematuria and urgency. Musculoskeletal: Negative. Skin: Negative. Neurological: Negative for dizziness, seizures, loss of consciousness, weakness and headaches. Endo/Heme/Allergies: Negative for environmental allergies. Does not bruise/bleed easily. Psychiatric/Behavioral: Negative for depression. PHYSICAL EXAMINATION: BP 106/56 Pulse 67 Resp 12 Ht 5' 6 (1.68m) Wt 186 lb (84.4kg) SpO2 97% BMI 30.04 kg/(m2). General: Very pleasant gentleman sitting appears comfortable no apparent distress. He is alert and oriented x3 HEENT: Carotid upstrokes are brisk bilateral without bruits. No JVD appreciated. Pulmonary: Lungs are clear no rales, wheezes, rhonchi Cardiovascular: Normal S1, S2 with regular rate and rhythm. No murmurs, rubs, gallops Extremities: Warm, well-perfused, no lower extremity edema. 2+ distal pulses CARDIOVASCULAR MEDICINE TESTING: ECG in the office 09/19/2023: Normal sinus rhythm with normal axis and intervals. No significant ST or T wave changes ECG in the office January 24, 2023: Normal sinus rhythm with normal axis and intervals. No significant ST or T wave changes Treadmill Nuclear Stress [facility] 05/21/2021 Perfusion SPECT analysis: Review of the stress images demonstrate normal uptake of tracer noted in all areas of the myocardium. The resting images similarly demonstrate normal uptake of tracer noted in all areas of the myocardium. No areas of reversibility are noted suggest ischemia and no previous infarct is noted. Gated SPECT analysis: The gated ejection fraction is 67%. Conclusion: Normal exercise myocardial perfusion stress test at a moderate workload. Preserved ejection fraction. IMPRESSION: Mr. 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 He also has a history of dyslipidemia. Patient presents office for routine follow-up. PLAN AND RECOMMENDATIONS: 1. Coronary artery disease involving northway coronary artery of northway heart without angina pectoris - ICD9: 414.01, ICD10: I25.10 (primary diagnosis) Left arm pain somewhat atypical for coronary disease. However, given his risk factors of recommended we stratify with stress test. - NITROGLYCERIN 0.3 MG SUBLINGUAL TABLET - NM CARDIAC PERF STRESS/EXERCISE 2. Other hyperlipidemia - ICD9: 272.4, ICD10: E78.49 Patient was intolerant to atorvastatin. I recommended a trial of rosuvastatin 10 mg daily. - OMEGA 3 1,000 MG-DHA 250 MG-EPA 750 MG/5 ML ORAL LIQUID 3. Other chest pain - ICD9: 786.59, ICD10: R07.89 - NM CARDIAC PERF STRESS/EXERCISE MD He Kovacs David Paul, MD 11/26/2024 10:14 AM Addendum We are ordering a stress test Do Not take the Metoprolol the day before or the morning of the stress No caffeine for 36 hours prior to the test We will try try Crestor (Rosuvastatin) for your cholesterol Referring Provider: CARLOS CUTLER [[id number]] Allergies As of Date: 11/26/2024 (No Known Allergies) Date Reviewed: 11/26/2024 Reviewed by: Carlos Cutler MD - Fully Assessed Reason for Visit: Follow Up [171] Cmt: med refill needed of Nitro, had some left arm pain on Tuesday while driving then took one nitro Primary Visit Diagnosis:Coronary artery disease involving northway coronary artery of northway heart without angina pectoris [I25.10] Other Visit Diagnoses:Other hyperlipidemia [E78.49] Other chest pain [R07.89] Order(s):nitroglycerin sublingual (NITROQUICK) 0.3 mg SL tabletDissolve 1 tablet under the tongue every 5 minutes as needed for chest pain.Disp: 25 tabletRfl: 3 NM CARDIAC PERF STRESS/EXERCISE [[id number]] Order #: [id number] FUTURE rosuvastatin (CRESTOR) 10 mg tabletTake 1 tablet by mouth daily at bedtime.Disp: 90 tabletRfl: 3 Prescriptions as of 11/26/2024 - nitroglycerin sublingual (NITROQUICK) 0.3 mg SL tablet Dissolve 1 tablet under the tongue every 5 minutes as needed for chest pain. - omega 9-zww-zyg-fish oil 1,000 mg (250 mg-750 mg)/5 mL liqd Take by mouth. - rosuvastatin (CRESTOR) 10 mg tablet Take 1 tablet by mouth daily at bedtime. - docosahexaenoic acid/epa (FISH OIL ORAL) Take by mouth once daily. - cholecalciferol (VITAMIN D3) 5,000 unit tab Take 5,000 Units by mouth once daily. - Vitamin E, dl, acetate, (VITAMIN E) 400 unit capsule Take 400 Units by mouth once daily. - metoprolol tartrate, short acting, (LOPRESSOR) 25 mg tablet Take by mouth once daily. - soybean, fermented (NATTOKINASE ORAL) Take by mouth once daily. - MULTIVITAMIN ORAL Take by mouth once daily. Problem List As Of Date 11/26/2024 Noted Resolved Coronary artery disease involving northway mercedes*12/28/2021 Other hyperlipidemia [E78.49] 12/28/2021 Other chest pain [R07.89] 11/26/2024 Other instructions from your clinician: We are ordering a stress test Do Not take the Metoprolol the day before or the morning of the stress No caffeine for 36 hours prior to the test We will try try Crestor (Rosuvastatin) for your cholesterol Prescriptions ordered this encounter Disp Refills Start End NITROGLYCERIN 0.3 MG SUBLINGUAL TABL* 25 t* 3 11/26/2024 Route: SUBLINGUAL Sig: Dissolve 1 tablet under the tongue every 5 minutes as needed for chest pain. ROSUVASTATIN 10 MG TABLET 90 t* 3 11/26/2024 Route: ORAL Sig: Take 1 tablet by mouth daily at bedtime. Medications Discontinued During This Encounter Prescriptions - atorvastatin (LIPITOR) 20 mg tablet (Discontinued) Reported on 03/19/2024 Disposition: Return in about 6 months (around 05/26/2025). Follow-up and Disposition History for Encounter Date Provider Department Center 11/26/2024 [id number] CUTLER Encounter Status:Closed by CARLOS CUTLER on 11/26/24 PROGRESS Observed: 11/26/2024 10:00 AM Status: COMPLETED Source: [facility] Author: CARLOS CUTLER MD Service: ? Author Type: Physician Type: Progress Notes Filed: 11/26/2024 10:35 Note Text: [facility]Y Cardiology ([address]) [address] [facility] [address] OUTPATIENT VISIT DATE 11/26/2024 PRIMARY CARE PHYSICIAN: HISTORY OF PRESENT ILLNESS: Mr. Jacobo is a 84 year old gentleman with a history of coronary artery disease prior inferior wall myocardial infarction October 30, 2019 and dyslipidemia who is here for routine follow-up. Patient reports a few episodes of left arm pain. The pain does not happen with exertion and is usually spontaneous in onset. There is no associated nausea, vomiting, or shortness of breath. He has not had diaphoresis. He did have 1 prolonged episode of left arm pain and took a sublingual nitroglycerin with relief in about 3 to 4 minutes. PAST MEDICAL HISTORY Diagnosis Date History of heart attack PAST SURGICAL HISTORY Procedure Laterality Date PRQ CARDIAC STENT W/ANGIO 1 VSL SOCIAL HISTORY Social History Tobacco Use Smoking status: Never Smokeless tobacco: Never Substance Use Topics Alcohol use: Never Drug use: Never No family history on file. ALLERGIES: ALLERGIES No Known Allergies MEDICATIONS: docosahexaenoic acid/epa (FISH OIL ORAL) Take by mouth once daily. cholecalciferol (VITAMIN D3) 5,000 unit tab Take 5,000 Units by mouth once daily. Vitamin E, dl, acetate, (VITAMIN E) 400 unit capsule Take 400 Units by mouth once daily. metoprolol tartrate, short acting, (LOPRESSOR) 25 mg tablet Take by mouth once daily. soybean, fermented (NATTOKINASE ORAL) Take by mouth once daily. MULTIVITAMIN ORAL Take by mouth once daily. atorvastatin (LIPITOR) 20 mg tablet Take 1 tablet by mouth once daily. (Patient not taking: Reported on 03/19/2024) REVIEW OF SYSTEMS: Review of Systems Constitutional: Negative for chills, fever, malaise/fatigue and weight loss. HENT: Negative for hearing loss and sore throat. Eyes: Negative for blurred vision and double vision. Respiratory: Negative. Cardiovascular: Negative. Gastrointestinal: Negative. Genitourinary: Negative for dysuria, frequency, hematuria and urgency. Musculoskeletal: Negative. Skin: Negative. Neurological: Negative for dizziness, seizures, loss of consciousness, weakness and headaches. Endo/Heme/Allergies: Negative for environmental allergies. Does not bruise/bleed easily. Psychiatric/Behavioral: Negative for depression. PHYSICAL EXAMINATION: BP 106/56 Pulse 67 Resp 12 Ht 5' 6 (1.68m) Wt 186 lb (84.4kg) SpO2 97% BMI 30.04 kg/(m2). General: Very pleasant gentleman sitting appears comfortable no apparent distress. He is alert and oriented x3 HEENT: Carotid upstrokes are brisk bilateral without bruits. No JVD appreciated. Pulmonary: Lungs are clear no rales, wheezes, rhonchi Cardiovascular: Normal S1, S2 with regular rate and rhythm. No murmurs, rubs, gallops Extremities: Warm, well-perfused, no lower extremity edema. 2+ distal pulses CARDIOVASCULAR MEDICINE TESTING: ECG in the office 09/19/2023: Normal sinus rhythm with normal axis and intervals. No significant ST or T wave changes ECG in the office January 24, 2023: Normal sinus rhythm with normal axis and intervals. No significant ST or T wave changes Treadmill Nuclear Stress [facility] 05/21/2021 Perfusion SPECT analysis: Review of the stress images demonstrate normal uptake of tracer noted in all areas of the myocardium. The resting images similarly demonstrate normal uptake of tracer noted in all areas of the myocardium. No areas of reversibility are noted suggest ischemia and no previous infarct is noted. Gated SPECT analysis: The gated ejection fraction is 67%. Conclusion: Normal exercise myocardial perfusion stress test at a moderate workload. Preserved ejection fraction. IMPRESSION: Mr. 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 He also has a history of dyslipidemia. Patient presents office for routine follow-up. PLAN AND RECOMMENDATIONS: 1. Coronary artery disease involving northway coronary artery of northway heart without angina pectoris - ICD9: 414.01, ICD10: I25.10 (primary diagnosis) Left arm pain somewhat atypical for coronary disease. However, given his risk factors of recommended we stratify with stress test. - NITROGLYCERIN 0.3 MG SUBLINGUAL TABLET - NM CARDIAC PERF STRESS/EXERCISE 2. Other hyperlipidemia - ICD9: 272.4, ICD10: E78.49 Patient was intolerant to atorvastatin. I recommended a trial of rosuvastatin 10 mg daily. - OMEGA 3 1,000 MG-DHA 250 MG-EPA 750 MG/5 ML ORAL LIQUID 3. Other chest pain - ICD9: 786.59, ICD10: R07.89 - NM CARDIAC PERF STRESS/EXERCISE Carlos Cutler MD COMP METAB 2000 PNL SERPL Collected: 7:14 AM Status: F Source: [facility] Order Comment: Specimen Type : BLOOD SPECIMEN Ordering Facility: [facility] Address: [address], [place] [address] TYPE CODE TESTS RESULT OUT OF RANGE REFERENCE UNITS LAB 2885-2(LOINC) Prot SerPl-mCnc 7.2 6.3-8.0 g/dL LAB 1751-7(LOINC) Albumin SerPl-mCnc 4.1 3.9-4.9 g/dL LAB 60579-1(LOINC) Calcium SerPl-mCnc 9.6 8.5-10.2 mg/dL LAB 1975-2(LOINC) Bilirub SerPl-mCnc 0.6 0.2-1.3 mg/dL LAB 6768-6(LOINC) ALP SerPl-cCnc 76 38-113 U/L LAB 1920-8(LOINC) AST SerPl-cCnc 21 14-40 U/L LAB 1742-6(LOINC) ALT SerPl-cCnc 15 10-54 U/L LAB 2345-7(LOINC) Glucose SerPl-mCnc 87 74-99 mg/dL Result Comment: The [place] Diabetes Association (ADA) provides guidance for cutoff values for fasting glucose and random glucose. The ADA defines fasting as no caloric intake for at least 8 hours. Fasting plasma glucose results between 100 to 125 mg/dL indicate increased risk for diabetes (prediabetes). Fasting plasma glucose results greater than or equal to 126 mg/dL meet the criteria for diagnosis of diabetes. In the absence of unequivocal hyperglycemia, results should be confirmed by repeat testing. In a patient with classic symptoms of hyperglycemia or hyperglycemic crisis, random plasma glucose results greater than or equal to 200 mg/dL meet the criteria for diagnosis of diabetes. Reference: Standards of Medical Care in Diabetes 2016, [place] Diabetes Association. Diabetes Care. 2016.39(Suppl 1). LAB 3094-0(LOINC) BUN SerPl-mCnc 17 9-24 mg/ dL LAB 2160-0(LOINC) Creat SerPl-mCnc 1.18 0.73-1.22 mg/dL LAB 2951-2(LOINC) Sodium SerPl-sCnc 139 136-144 mmol/L LAB 2823-3(LOINC) Potassium SerPl-sCnc 4.2 3.7-5.1 mmol/L LAB 5-0(LOINC) Chloride SerPl-sCnc 103 98-107 mmol/L LAB 2027-(LOINC) CO2 SerPl-sCnc 29 22-30 mmo l/L LAB 98393-9(LOINC) Anion Gap SerPl-sCnc 7 Low 8-15 mmol/L LAB 91925-0(LOINC) Creatinine + eGFR Pnl SerPlBld 62 >=60 mL/min/1 .73m??? Result Comment: Estimated Gl omerular Filtration Rate (eGFR) is calculated using the 2020 CKD-EPI creatinine equation. This equation utilizes serum creatinine, sex, and age as parameters. The creatinine assay has traceable calibration to isotope dilution-mass spectrometry. Refer to KDIGO guidelines for clinical interpretation. In patients with unstable renal function, e.g. those with acute kidney injury, the eGFR may not accurately reflect actual GFR. Performed By: #### 25632-5 # ### [facility] CLIA [id number] [address] [place] [address] [place] LIPID 1996 PNL SERPL Collected: 024 7:14 AM Status: F Source: [facility] Order Comment: Specimen Type : BLOOD SPECIMEN Ordering Facility: [facility] Address: [address] [place] [address] TYPE CODE TESTS RESULT OUT OF RANGE REFERENCE UNITS LAB 3-3(LOINC) Cholest SerPl-mCnc 189 <200 mg/dL Result Comment: <200 mg/dL, Desirable 200-239 mg/dL, Borderline high >239 mg/dL, High LAB 2571-8(LOINC) Trigl SerPl-mCnc 114 <150 mg/dL Result Comment: <150 mg/dL, Normal 150-199 mg/dL, Borderline high 200-499 mg/dL, High >499 mg/dL, Very high LAB 2085-9(LOINC) HDLc SerPl-mCnc 34 Low >39 mg/dL Result Comment: 40-59 mg/dL, Acceptable >59 mg/dL, High: Negative risk factor for coronary heart disease <40 mg/dL, Low: Positive risk factor for coronary heart disease LAB 97698-4(LOINC) NonHDLc SerPl-mCnc 155 High <130 mg/dL Result Comment: <130 mg/dL, Optimal 130-159 mg/dL, Near optimal/above optimal 160-189 mg/dL, Borderline high 190-219 mg/dL, High >219 mg/dL, Very high Secondary prevention optimal non HDL Cholesterol levels are recommended to be <100 mg/dL LAB FT FASTING TIME 13 hrs LAB 88312-2([facility]) VLDLc SerPl Calc-mCnc 23 <30 mg/dL LAB 9830-1(LOINC) Cholest/HDLc SerPl 5.56 High <5.10 LAB 2089-1(LOINC) LDLc SerPl-mCnc 132 High <100 mg/dL Result Comment: <100 mg/dL, Optimal 100-129 mg/dL, Near optimal/above optimal 130-159 mg/dL, Borderline high 160-189 mg/dL, High >189 mg/dL, Very high Secondary prevention optimal LDL Cholesterol levels are recommended to be < 70 mg/dL LAB 30777-1(LOINC) LDLc/HDLc SerPl 3.88 High <2.54 Result Comment: Reference: 1. National Cholesterol Education Program ATP III Guideline At-A-Glance Quick Desk Reference: National Heart, Lung, and Blood [place]. National Institutes of Health. 2001: NIH Publication No. 01-3305. 2. An International Atherosclerosis Society position paper: global recommendations for the management of dyslipidemia: executive summary, Atherosclerosis. 2014: 232(2):410-413. Performed By: #### 15418-3 # ### [facility] CLIA [id number] [address] [place] [address] [place] [facility] CLIA [id number] [address] [place] [address] [place] ALLERGIES DATE TYPE / CODE NAME / CODE REACTION SEVERITY SOURCE Drug Class/[id number](SNO MED CT) NO KNOWN ALLERGIES [facility] ENCOUNTERS ADMIT/DISCHARGE ACCOUNT NUMBER ADMITTING ENCOUNTER CLASS LOC ATION SOURCE 01/14/2025/ 5 [id number] Ambulatory [facility] Hospital[facility] ing:VERONICA [facility] 01/14/2025/ 5 [id number] Amb[facility] 01/14/2025/ 5 [id number] Ambulatory [facility] HospitalBuild ing:EDENILSON [facility] 11/26/2024/ 5 [id number] Ambulatory [facility] HospitalBuild ing:VERONICA [facility] 09/26/2024/ 4 [id number] Ambulatory [facility] HospitalBuild ing:WOL2 [facility] PAYERS ENCOUNTER GUARANTOR PAYER SUBSCRIBER SOURCE 01/14/2025 Primary Insuranc e:MMO MEDADVANTAGE HMOPolicy Number: [id number] Date:[id number] Name:Yahir MCCLURE BIPINOB: [id number] [address] 01/14/2025 Primary Insuranc e:MMO MEDADVANTAGE HMOPolicy Number: [id number] Date:[id number] Name:Yahir MCCLURE BIPINOB: [id number] [address] 01/14/2025 Primary Insuranc e:MMO MEDADVANTAGE HMOPolicy Number: [id number] Date:[id number] Name:Yahir MCCLURE BIPINOB: [id number] [address] 11/26/2024 Primary Insuranc e:MMO MEDADVANTAGE HMOPolicy Number: [id number] Date:[id number] Name:Yahir MCCLURE BIPINOB: [id number] [address] 09/26/2024 Primary Insuranc e:MMO MEDADVANTAGE HMOPolicy Number: [id number] Date:[id number] Name:Yahir MCCLURE BIPINOB: [id number] [facility] [address] [place] [id number] [facility]
[2025-07-30 10:33] LABS: Hematocrit 44.8 % (40-54); Hemoglobin 15.1 g/dL (13.0-16.5); Immature Granulocytes Count 0.010 X10^3/uL (0.0-0.0); Mean Corp Hgb Conc 33.7 g/dL (32-36); Mean Corpuscular Volume 96.1 fL (80-94); Mean Platelet Vol. 9.6 fl (6.2-12.0); NRBC Flagged by Analyzer 0 % (0-5); Platelet Count 176 K/mm3 (150-450); RBC Distribution Width CV 14.6 % (11.6-14.6); RBC Distribution Width SD 51.7 fl (35.1-43.9); Red Blood Count 4.66 M/mm3 (4.6-6.2); White Blood Count 5.5 K/mm3 (4.4-11.0)
[2025-07-30 11:35] LABS: AST(SGOT) 23 U/L (<=37); Alanine Aminotransfer ALT/SGPT 15 U/L (<=46); Albumin, Serum 4.0 g/dL (3.4-4.8); Alkaline Phosphatase 69 U/L (40-129); Anion Gap 10 (5-15); BUN 15 mg/dL (4-19); BUN/Creat Ratio 14.3 RATIO (10-20); Calcium,Total 9.2 mg/dL (7.6-11.0); Carbon Dioxide 24.9 mmol/L (21.0-32.0); Chloride 105 mmol/L (98-108); Cholesterol 204 mg/dL (<=200); Globulin 3.3 g/dL (2.2-4.2); Glucose 82 mg/dL (70-99); Low Density Lipoprotein Calc. 147 mg/dL; PSA,Total - Annual Screen 3.40 ng/mL (0.02-4.00); Potassium 3.9 mmol/L (3.3-5.1); Triglycerides 96 mg/dL; Very Low Density Lipoprotein 19 mg/dL (5-40); Vitamin B12 1027 pg/mL (180-914); Vitamin D,25 Hydroxy 58.1 ng/mL (30-100); cholesterol:hdl ratio screen 5.33
== END 2025-07-30 23:59 | disposition home or self-care (01) ==
LOC: LAB 09:20
PROVIDERS: PCP Internal Medicine; Referring Provider Internal Medicine; Visit Provider Internal Medicine
DX: R39.9 Unspecified symptoms and signs involving the genitourinary system (principal); Z95.5 Presence of coronary angioplasty implant and graft; I25.10 Atherosclerotic heart disease of native coronary artery without angina pectoris; L98.9 Disorder of the skin and subcutaneous tissue, unspecified; Z13.220 Encounter for screening for lipoid disorders; E03.9 Hypothyroidism, unspecified; E53.8 Deficiency of other specified B group vitamins; Z12.5 Encounter for screening for malignant neoplasm of prostate
CPT/HCPCS: 36415; 80053; 80061; 82306; 82607; 84153; 84443; 85025; G0103